=== PATIENT | male | born 1970 | race Caucasian/White ===

== ENCOUNTER 2017-01-10 05:45 | Day surgery (SDC) | payer OTHER ==
[~2017-01-10] VITALS: Ht 185.4 cm; Wt 83.9 kg
[~2017-01-10 05:45] MED LIST: ALLEGRA-D1 TAB.SR1 PO
[2017-01-10] MEDS ORDERED: PAZEO (06:01)
[2017-01-10 06:02] VITALS: BP 110/67; Ht 185.4 cm; Wt 83.9 kg
[2017-01-10 06:43] LABS: HEMATOCRIT 44.2 % (42.0-54.0); HEMOGLOBIN 14.9 g/dL (13.5-17.5); MCH 32.2 pg (26.0-34.0); MCHC 33.7 g/dL (31.0-37.0); MCV 95.5 fL (80.0-100.0); MEAN PLATELET VOLUME 10.6 fL (7.4-10.4); RBC 4.63 10x6/uL (4.20-6.10); RDW 12.9 % (11.5-14.5)
[2017-01-10] MEDS ORDERED: ROBAXIN-750750 MG PO (09:02)
[2017-01-10] MEDS ORDERED: HYDROCODONE-APA1 TAB PO (09:02)
--- NOTE | 2017-01-10 13:51 | NUR ---
1030 IV DC WITH CATHER TIP INTACT
--- NOTE | 2017-01-28 12:19 | OP ---
PATIENT NAME: ALEX VILLALOBOS MEDICAL RECORD: [id number] :68 LOCATION:[facility] ADMISSION DATE: SURGEON: NADEGE COLE MD DATE OF OPERATION: 01/10/2017 PREOPERATIVE DIAGNOSES: Left shoulder rotator cuff tear, acromioclavicular joint degenerative joint disease and impingement. POSTOPERATIVE DIAGNOSES: Left shoulder rotator cuff tear, acromioclavicular joint degenerative joint disease and impingement. PROCEDURE PERFORMED: Left shoulder distal clavicle excision and subacromial decompression with open rotator cuff repair. SURGEON: Tanmay Cole MD ANESTHESIA: General with interscalene block for postop pain. CONDITION: The patient tolerated the procedure well and was transferred to the recovery room in stable condition at termination of the procedure. INDICATIONS: This is a 46-year-old gentleman, who has been having pain in his shoulder and inability to raise his arm. This has gotten progressively worse. After discussion, we elected to go ahead and proceed with repair. MRI showed a tear. OPERATIVE REPORT: The patient was taken to the operating room and placed in supine position. General anesthesia was obtained. Interscalene block was placed in the preop holding area. Once this was accomplished, he was placed in a beach chair position. The portal sites were marked and injected with 0.25% Marcaine with epinephrine. I established the posterior portal for the scope and inflow and under direct visualization, I established an anterior portal. I then proceeded to check the shoulder, finding no significant lesions in the glenohumeral joint. The subscapularis looks good. The biceps tendon did not have any lesions on it. I did see he definitely had a tear of the supraspinatus. I took the scope out, placed it in the subacromial space, took off the undersurface of the acromion as well as the distal clavicle to the point where I could see good visualization between the two. I then proceeded to open, identified the cuff tear, placed 2 suture punched sutures through the cuff and put them initially to a 4.5 [place] suture anchor which actually failed, the anchor broke. I therefore switched it to a 5.5 [place] suture anchor. This pulled the cuff down very nicely to the footprint area. I copiously irrigated this area, closed with 2-0 Vicryl, then 3-0 Prolene, placed him in a slingshot Breg brace. He was awakened and transferred to the recovery room in stable condition, having tolerated the procedure well. TRANSINT:[id number] Voice Confirmation ID: [id number] DOCUMENT ID: [id number] OPERATIVE REPORT [id number] DAILY,ALEX COLE, NADEGE DORMAN MD at 1219 CC: [id number] DICTATION DATE: 01/10/17 1140 DISC PAD GRINDER: 01/10/17 1356 [facility] 01/10/17 [id number] [place] [address]
--- NOTE | 2017-02-11 16:33 | HP ---
PATIENT: WILFREDO,YAMILA MOORE MEDICAL RECORD: [id number] ACCOUNT: [id number] LOCATION:[facility] : 68 ADMISSION DATE: 01/10/17 HISTORY AND PHYSICAL EXAMINATION HISTORY OF PRESENT ILLNESS: Yamila is a pleasant 46-year-old gentleman known to myself. He presents with left shoulder pain and weakness that has been ongoing without resolution. He has had an MRI and presents for examination of the shoulder as well as preparation. ALLERGIES: TO ADHESIVES. SOCIAL HISTORY: He does not smoke. He drinks occasionally. PAST SURGICAL HISTORY: His surgery history includes a right knee ACL reconstruction in 2010 with a partial medial meniscectomy. MEDICATIONS: Includes Tylenol 3, Dora, azithromycin, cyclobenzaprine, levofloxacin, methylprednisolone, statin, Pazeo eyedrops as well as promethazine. REVIEW OF SYSTEMS: At the time was essentially negative. PHYSICAL EXAMINATION: VITAL SIGNS: Weight was 185, height 6 feet 1 inches, blood pressure 127/81, pulse 61, BMI 24.4. HEENT: Within normal limits. CARDIOVASCULAR: Regular rate and rhythm. LUNGS: Clear. ABDOMEN: Benign. EXTREMITIES: Examination of the left shoulder had revealed limited motion. He was only able to elevate his arm to about 75 to 90 degrees, abduction similar, weakness with abduction, weakness with external rotation. Neurovascularly intact. He had pain with impingement signs. He had pain with cross body adduction. DIAGNOSTIC DATA: MRI showed what appeared to be a rotator cuff tear of significant size. ASSESSMENT: Left shoulder rotator cuff tear, acromioclavicular joint degenerative joint disease and impingement. PLAN: To bring him to the hospital for treatment of these problems. We have discussed the options. He understands and wishes to proceed. TRANSINT:[id number] Voice Confirmation ID: [id number] DOCUMENT ID: [id number] HISTORY AND PHYSICAL [id number] DAILY,YAMILA SCOTT, NADEGE DORMAN MD at 1633 CC: [id number] DICTATION DATE: 02/04/17 1019 [employer]ER: 02/04/17 1150 [facility] 01/10/17 [place] [address]
== END 2017-01-10 10:45 | disposition home or self-care (01) ==
LOC: D.OPS 05:45 → D.PAN 08:15 → D.OPS 08:15
PROVIDERS: Anesthesiology
DX: M75.102 Unspecified rotator cuff tear or rupture of left shoulder, not specified as traumatic (principal); M19.012 Primary osteoarthritis, left shoulder; M75.42 Impingement syndrome of left shoulder

== ENCOUNTER → 2017-05-22 07:48 | Outpatient (CLI) | payer OTHER ==
[2017-01-10 06:02] VITALS: BMI 24.4
[~2017-05-22 07:48] MED LIST changes: +HYDROCODONE-APA1 TAB PO; +PAZEO; +ROBAXIN-750750 MG PO
[2017-05-23 07:27] LABS: IMMUNOGLOBULIN E 17 IU/mL (0-100)
[2017-05-23 08:19] LABS: IMMUNOGLOBULIN A 99 mg/dL (90-386); IMMUNOGLOBULIN G 677 mg/dL (700-1600)
== END | disposition home or self-care (01) ==
LOC: D.RT 07:48
PROVIDERS: Internal Medicine Pulmonary Disease
DX: J18.9 Pneumonia, unspecified organism (principal)

== ENCOUNTER → 2017-09-10 08:12 | Outpatient (CLI) | payer OTHER ==
[2017-01-10 06:02] VITALS: BMI 24.4
== END | disposition home or self-care (01) ==
LOC: D.CT 08:12
DX: J32.9 Chronic sinusitis, unspecified (principal)

== ENCOUNTER → 2018-03-03 13:40 | Outpatient (CLI) | payer OTHER ==
[2017-01-10 06:02] VITALS: BMI 24.4
== END | disposition home or self-care (01) ==
LOC: D.MRI 13:40
DX: S69.91XD Unspecified injury of right wrist, hand and finger(s), subsequent encounter (principal); X58.XXXA Exposure to other specified factors, initial encounter; Y93.89 Activity, other specified; Y92.89 Other specified places as the place of occurrence of the external cause

== ENCOUNTER → 2019-01-08 07:03 | Outpatient (CLI) | payer OTHER ==
[2017-01-10 06:02] VITALS: BMI 24.4
== END | disposition home or self-care (01) ==
LOC: D.US 01-07 07:00
DX: R10.13 Epigastric pain (principal)